=== PATIENT | male | born 1940 | race Caucasian/White ===

== ENCOUNTER 2018-08-21 18:43 | Emergency (ER) | payer MEDICARE, MEDICAID ==
--- NOTE | 2018-08-21 19:35 | C.PDOC ---
History Of Present Illness Patient presents with a non healing ulcer on the lateral aspect of his right leg. Finished a course of keflex, but ulcer unchanged. Unknown start time or event that started the wound. No f/c/n/v. Ambulating without difficulty.Denies any trauma Time Seen by Provider: 08/21/18 19:35 Chief Complaint (Nursing): Lower Extremity Problem/Injury History Per: Patient History/Exam Limitations: no limitations Onset/Duration Of Symptoms: Days Current Symptoms Are (Timing): Still Present Severity: Moderate Pain Scale Rating Of: 4 Recent travel outside of the [place]: No Additional History Per: Family Past Medical History Reviewed: Historical Data, Nursing Documentation, Vital Signs Vital Signs: Last Vital Signs Temp 97.7 F 08/21/18 18:58 Pulse 69 08/21/18 18:58 Resp 18 08/21/18 18:58 BP 175/80 H 08/21/18 18:58 Pulse Ox 95 08/21/18 18:58 - Medical History PMH: HTN, Hypercholesterolemia Family History: States: No Known Family Hx - Social History Hx Alcohol Use: No Hx Substance Use: No - Immunization History Hx Tetanus Toxoid Vaccination: No Hx Influenza Vaccination: No Hx Pneumococcal Vaccination: No Review Of Systems Constitutional: Negative for: Fever, Chills Respiratory: Negative for: Shortness of Breath Musculoskeletal: Positive for: Leg Pain. Negative for: Back Pain Skin: Positive for: Rash, Lesions Neurological: Negative for: Weakness Psych: Negative for: Anxiety Physical Exam - Physical Exam Appears: Non-toxic, No Acute Distress Skin: Warm, Dry, Other (5x3 oval non healing ulcer on the lat aspect right leg) Oral Mucosa: Moist Neck: Supple Chest: Symmetrical Cardiovascular: Rhythm Regular Respiratory: No Rales, No Rhonchi, No Wheezing Gastrointestinal/Abdominal: Soft, No Tenderness, No Distention Back: Normal Inspection Extremity: Tenderness, Pedal Edema, No Deformity, Other (large 5x3 non healing ulcer , raised borders, some purulent material seen at base,) Extremity: Bilateral: Normal ROM Pulses: Left Dorsalis Pedis: Normal, Right Dorsalis Pedis: Normal Neurological/Psych: Oriented x3 Gait: Steady ED Course And Treatment - Laboratory Results Result Diagrams: 08/21/18 20:29 08/21/18 20:29 O2 Sat by Pulse Oximetry: 95 Pulse Ox Interpretation: Normal Disposition Counseled Patient/Family Regarding: Studies Performed, Diagnosis, Need For Followup, Rx Given - Disposition Referrals: Scott Ely MD [Staff Provider] - Disposition: HOME/ ROUTINE Disposition Time: 19:35 Condition: FAIR Additional Instructions: Please return if symptoms recur.Will also need to follow up with a wound center Prescriptions: Dicloxacillin [Dynapen] 500 mg PO TID #21 cap Instructions: Cellulitis (Skin Infection), Adult (DC) Forms: [employer] (Pashto) Print Language: TURKISH - Clinical Impression Clinical Impression: Cellulitis of right leg, Non-healing ulcer
[2018-08-21 20:32] LABS: BASO # 0.1 K/uL (0.0-0.2); BASO % 1.1 % (0.0-2.0); EOS # 0.3 K/uL (0.0-0.7); EOS % 4.7 % (0.0-4.0); HEMOGLOBIN 11.3 g/dL (12.0-18.0); LYMPH # 1.8 K/uL (1.0-4.3); LYMPH % 29.7 % (20.0-40.0); MEAN CELL VOLUME 87.7 fL (80.0-94.0); MEAN CORPUSCULAR HEMOGLOBIN 30.5 pg (27.0-31.0); MEAN CORPUSCULAR HGB CONC 34.8 g/dL (33.0-37.0); MEAN PLATELET VOLUME 7.3 fL (7.2-11.7); MONO # 0.5 K/uL (0.0-0.8); MONO % 8.1 % (0.0-10.0); NEUT # 3.3 K/uL (1.8-7.0); NEUT % 56.4 % (50.0-75.0); NRBC % 0.3 % (0.0-2.0); RBC 3.7 Mil/uL (4.40-5.90); RED CELL DISTRIBUTION WIDTH 12.4 % (11.5-14.5); WHITE BLOOD COUNT 5.9 K/uL (4.8-10.8)
[2018-08-21 20:40] LABS: VENOUS BLOOD GAS BASE EXCESS 2.1 mmol/L (0.0-2.0); VENOUS BLOOD GAS PCO2 52 mmHg (40-60); VENOUS BLOOD GAS PO2 24 mm/Hg (30-55); VENOUS BLOOD PH 7.35 (7.32-7.43)
[2018-08-21 20:43] LABS: INR 1.2; PROTHROMBIN TIME 13.3 SECONDS (9.7-12.2)
[2018-08-21 20:44] VITALS: TEMP 98.6
[2018-08-21 20:44] LABS: ALB/GLOB RATIO 1.4 (1.0-2.1); ALBUMIN 4.1 g/dL (3.5-5.0); ALT/SGPT 27 U/L (21-72); AST/SGOT 27 U/L (17-59); BLOOD UREA NITROGEN 16 mg/dL (9-20); CALCIUM 8.9 mg/dl (8.6-10.4); GFR NON-AFRICAN AMERICAN > 60
[2018-08-21] MEDS ORDERED: ceFAZolin IV 2 gm in Dextrose 2 GM/50 ML BAG IVPB SCH (21:30)
[2018-08-21] MEDS ORDERED: ceFAZolin 2 GM in Sodium Chloride 0.9% 100 ML IVPB ONE (21:45)
[2018-08-21 22:34] VITALS: BP 145/74; PULSE 74; RESP 18; O2SAT 98
--- NOTE | 2018-08-22 08:46 | CT ---
Date of service: 08/21/2018 PROCEDURE: HISTORY: right lateral ulcer, poss osteo or basal cell ca COMPARISON: TECHNIQUE: FINDINGS: Subcutaneous ulcerations noted along the lateral aspect of the mid left leg with extensive subcutaneous edema present consistent with cellulitis. Subcutaneous superficial varicosities present. No definite evidence of abscess or osteomyelitis. No fracture. IMPRESSION: Extensive left leg cellulitis. No definite evidence of osteomyelitis or abscess.
== END 2018-08-21 22:35 | disposition home or self-care (01) ==
LOC: C.ER 18:43
DX: L97.819 Non-pressure chronic ulcer of other part of right lower leg with unspecified severity (principal); L03.115 Cellulitis of right lower limb
CPT/HCPCS: 73700; 80053; 82803; 85025; 85610; 85730; 87040; 96374; 99283; J0690